=== PATIENT | female | born 1945 | race Caucasian/White ===

== ENCOUNTER 2020-01-22 09:43 | Outpatient (CLI) | payer MEDICARE, SELFPAY ==
--- NOTE | ~2020-01-22 | MM_ITS ---
EXAMINATION: MM scrn lisbet implant BI w odette HISTORY: Screening mammogram TECHNIQUE: Craniocaudal and mediolateral oblique 3-D tomosynthesis images with implant displacement a nd synthetic 2-D images were generated. Craniocaudal and mediolateral oblique views of the breasts wi thout implant displacement were obtained using full field digital mammography. CAD analysis was submi tted and interpreted. COMPARISON: Comparison to multiple prior studies sequentially, with oldest reviewed study dated 09/05. BREAST PARENCHYMAL COMPOSITION: There are scattered areas of fibroglandular density. FINDINGS: There are bilateral subglandular silicone implants. There is no evidence of suspicious mass , calcification, or architectural distortion to suggest malignancy in either breast. There has been n o suspicious interval change. IMPRESSION: 1. No mammographic evidence of malignancy. 2. Recommend routine screening mammography in one year. BI-RADS Category 1: Negative Reviewed, dictated and finalized at location A.
== END 2020-01-22 09:44 | disposition home or self-care (01) ==
LOC: ANHIMG 09:52
PROVIDERS: PCP Family Medicine; Visit Provider Obstetrics & Gynecology Gynecology
DX: Z12.31 Encounter for screening mammogram for malignant neoplasm of breast (principal)
CPT/HCPCS: 77063; 77067

== ENCOUNTER 2021-10-04 09:50 | Outpatient (CLI) | payer MEDICARE, SELFPAY ==
--- NOTE | ~2021-10-04 | MM_ITS ---
EXAMINATION: MM scrn lisbet implant BI w odette HISTORY: Screening mammogram TECHNIQUE: Craniocaudal and mediolateral oblique 3-D tomosynthesis images with implant displacement a nd synthetic 2-D images were generated. Craniocaudal and mediolateral oblique views of the breasts wi thout implant displacement were obtained using full field digital mammography. CAD analysis was submi tted and interpreted. COMPARISON: 02/18/2020, 01/14/2019, 09/11/2017 BREAST PARENCHYMAL COMPOSITION: There are scattered areas of fibroglandular density. FINDINGS: There is no evidence of suspicious mass, calcification, or architectural distortion to sugg est malignancy in either breast. There has been no suspicious interval change. IMPRESSION: 1. No mammographic evidence of malignancy. 2. Recommend routine screening mammography in one year. BI-RADS Category 1: Negative Reviewed, dictated and finalized at location A.
--- NOTE | ~2021-10-04 | DEXA_ITS ---
Bone Density Report Name: MARU DE LA ROSA Age: 76 Sex: Female Ethnicity: White Date of : 1945 Indication: monitoring treatment; height loss; prior fracture; asthma or emphysema; postmenopausal Referring Provider: DARIEN YANES Study: Bone densitometry was performed. Exam Date: October 04, 2021 Accession number: [id number] Bone Density: Region BMD T-score Z-score Classification AP Spine(L1-L4) 1.129 0.7 3.3 Normal World Health Organization criteria for BMD impression classify patients as: Normal (T-score at or above -1.0), Osteopenia (T-score between -1.0 and -2.5), or Osteoporosis (T-score at or below -2.5). Previous Exams: Region Exam Age BMD T-score BMD Change BMD Change Date g/cm2 vs Baseline vs Previous AP Spine (L1-L4) 10/04/2021 76 1.129 0.7 0.021 (1.9%)# 0.021 (1.9%)# 10/09/2012 67 1.109 0.6 *Denotes significance at 95% confidence level, LSC for AP Spine = 0.022 g/cm2 # Denotes dissimilar scan types or analysis methods Clinical Information Provided by Patient: Have had a previous hip or vertebral fracture Has had a low trauma fracture Is being treated for osteoporosis Has used the following medications: Evista (i.e. raloxifene), Vitamin D, Calcium Has the following medical conditions: Asthma or Emphysema Patient maximum height was 62.5 Menopause Age: 51 Drinks caffeinated beverages Onset of menses at age 11 Number of children 0 Impression: The patient has normal bone mass. The patient has risk factors, including: previous fracture. No significant bone loss was observed. Discussion: PATIENT UNDER TREATMENT WITH NO SIGNIFICANT BMD LOSS SINCE LAST EXAM. In an untreated patient, BMD typically declines with age. A lack of decline or gain is usually a sign that treatment is efficacious and fracture risk is reduced. It is important to ask patients whether they are taking their medications and to encourage continued and appropriate compliance with their osteoporosis therapies to reduce fracture risk. It is also important to review their risk factors and encourage appropriate calcium and vitamin D intakes, exercise, fall prevention and other lifestyle measures. Follow-Up: Consider a repeat BMD and Vertebral Fracture Assessment (VFA) exam in 2 years or sooner if medically necessary, to reassess this patient's status. Reported by: [facility] on 10/04/2021 10:33:00 AM. Reviewed, dictated and finalized at location AHilaria ANGUIANO
== END 2021-10-04 09:51 | disposition home or self-care (01) ==
PROVIDERS: PCP Family Medicine; Visit Provider Obstetrics & Gynecology Gynecology
DX: Z12.31 Encounter for screening mammogram for malignant neoplasm of breast (principal); Z78.0 Asymptomatic menopausal state
CPT/HCPCS: 77063; 77067; 77080

== ENCOUNTER 2022-11-30 08:15 | Outpatient (CLI) | payer MEDICARE, SELFPAY ==
--- NOTE | ~2022-11-30 | MM_ITS ---
EXAMINATION: MM scrn lisbet implant BI w odette HISTORY: Screening mammogram TECHNIQUE: Craniocaudal and mediolateral oblique 3-D tomosynthesis images with implant displacement a nd synthetic 2-D images were generated on the right performed on the left.. Craniocaudal and mediolat eral oblique views of the breasts without implant displacement were obtained using full field digital mammography. CAD analysis was submitted and interpreted. COMPARISON: 10/04/2021, 01/22/2020, 01/14/2019 bilateral implant screening mammogram examinations BREAST PARENCHYMAL COMPOSITION: There are scattered areas of fibroglandular density. FINDINGS: Status post bilateral augmentation mammoplasty. There is no evidence of suspicious mass, ca lcification, or architectural distortion to suggest malignancy in either breast. There has been no domínguez spicious interval change. IMPRESSION: 1. No mammographic evidence of malignancy. 2. Recommend routine screening mammography in one year. BI-RADS Category 1: Negative Reviewed, dictated and finalized at location A.
== END 2022-11-30 08:16 | disposition home or self-care (01) ==
PROVIDERS: PCP Family Medicine; Visit Provider Obstetrics & Gynecology Gynecology
DX: Z12.31 Encounter for screening mammogram for malignant neoplasm of breast (principal)
CPT/HCPCS: 77063; 77067

== ENCOUNTER 2024-01-17 09:35 | Outpatient (CLI) | payer MEDICARE, SELFPAY ==
--- NOTE | ~2024-01-17 | MM_ITS ---
EXAMINATION: MM scrn lisbet implant BI w odette HISTORY: Screening mammogram TECHNIQUE: Craniocaudal and mediolateral oblique 3-D tomosynthesis images with implant displacement a nd synthetic 2-D images were generated. Craniocaudal and mediolateral oblique views of the breasts wi thout implant displacement were obtained using full field digital mammography. CAD analysis was submi tted and interpreted. COMPARISON: Comparison to multiple prior studies sequentially, with oldest reviewed study dated 09/05. BREAST PARENCHYMAL COMPOSITION: There are scattered areas of fibroglandular density. FINDINGS: There is no evidence of suspicious mass, calcification, or architectural distortion to sugg est malignancy in either breast. There has been no suspicious interval change. IMPRESSION: 1. No mammographic evidence of malignancy. 2. Recommend routine screening mammography in one year. BI-RADS Category 1: Negative Reviewed, dictated and finalized at location B.
== END 2024-01-17 09:36 | disposition home or self-care (01) ==
PROVIDERS: Visit Provider Obstetrics & Gynecology Gynecology
DX: Z12.31 Encounter for screening mammogram for malignant neoplasm of breast (principal)
CPT/HCPCS: 77063; 77067

== ENCOUNTER 2025-02-03 09:33 | Outpatient (CLI) | payer MEDICARE, SELFPAY ==
--- NOTE | ~2025-02-03 | MM_ITS ---
EXAMINATION: MM scrn lisbet implant BI w odette INDICATION: Asymptomatic, referred for screening mammogram COMPARISON: 01/17/2024 through 10/04/2021 TECHNIQUE: Digital Breast Tomosynthesis CC, MLO, and implant displaced CC and MLO views of Both breasts were obtained with computer-aided detection to assist in interpretation of the study. FINDINGS: There are scattered areas of fibroglandular density. Bilateral breast Retroglandular Silicone implants in place appears unchanged. No focal dominant mass, architectural distortion, or suspicious microcalcifications are identified. There are no features to suggest malignancy. IMPRESSION: 1. No evidence of malignancy in the breasts. 2. Both breasts Retroglandular Silicone implants appears unchanged. Recommend continued screening mammography BI-RADS 1, NEGATIVE Reviewed, dictated and finalized at location C.
--- OUTSIDE RECORDS SUMMARY | 2025-02-03 10:53 | XMS_ITS | Patient Health Record ---
Author Organization [facility] Address [address] [place], [place] [id number] Care Team Providers Care Sand Bobber Name Role Phone DIONISIO RUIZ Unavailable [phone] Jose Greenberg Unavailable Unavailable Reason For Referral No Information Medications Medication SIG (Take, Route, Frequency, Duration) Notes Start Date End Date Status cephalexin 500 MG Oral Capsule [Keflex] ORAL cephalexin 500 MG Oral Capsule [Keflex]Original Medicationcephalexin 500 MG Oral Capsule [Keflex] *Reorder from [employer] for eRx and Interaction Alerts* 03/05/2012 Active Nabumetone 500 MG Oral Tablet ORAL nabumetone 500 MG Oral TabletOriginal Medicationnabumetone 500 MG Oral Tablet *Reorder from [employer] for eRx and Interaction Alerts* 04/01/2013 Active Plan Of Treatment No Information Insurance Providers Payer Name Payer Address Payer Phone Subscriber Number Group Number Insured Name Patient Relationship to Insured Coverage Start Date Coverage End Date Medicare Part B [place] [address] [place] [address] [id number] MARU DE LA ROSA Self - patient is the insured [facility] Insurance [address] [address] [place] [address] [id number] MARU DE LA ROSA Self - patient is the insured [facility] B [address] [place], [place] [id number] MARU DE LA ROSA Self - patient is the insured
--- OUTSIDE RECORDS SUMMARY | 2025-02-03 10:53 | XMS_ITS | Encounter Summary ---
Author Organization [facility] Facility Care Team Providers Care Metrology Engineer Name Role Phone Jose Greenberg MD Primary Care Provider [phone] Miles Meza MD Unavailable [phone] Claudia Fragoso LPN Unavailable [phone] Tamiko Sadler MD, Michael G. Primary Care Provide r No, Physician Primary Care Provider [phone] Tamiko Sadler MD, Ankur Norton Primary Care Provide r Encounter Details Date Type Department Care Team (Latest Contact Info) Description 12/31/2017 Orders Only [facility] CLINCONV ProviderAnaya MD [address] [place] [address] Social History Tobacco Use Types Packs/Day Years Used Date Smoking Tobacco: Never Assessed Comments Unknown Sex and Gender Information Value Date Recorded Sex Assigned at Not on file Legal Sex Female 12:27 AM TESTS SUPERINTENDENT Gender Identity Not on file Sexual Orientation Not on file documented as of this encounter Plan of Treatment Not on file documented as of this encounter Procedures Procedure Name Priority Date/Time Associated Diagnosis Comments COLONOSCOPY - SCAN 12/31/2017 12 :00 AM CDT documented in this encounter Results * COLONOSCOPY - SCAN (12/31/2017 12:00 AM CDT) Narrative 12/31/2017 12:00 AM CDT Ordered by an unspecified provider. Historical Provider Final Res ult documented in this encounter Visit Diagnoses Not on filedocumented in this encounter Care Teams Metrology Engineer Relationship Specialty Start Date End Date Jose Greenberg MD PCP - General Family Medicine 10/22/18 05/01/22 Ankur Morrison Jr., MD [address] [place] [address] PCP - General Internal Medicine 05/02/22 05/02/22 No, Physician PCP - General 05/19/22 06/04/22 Ankur Morrison Jr., MD [address] [place] [address] PCP - General Internal Medicine 06/05/22 Miles Meza MD [address] [facility] [address] [address] Consulting Physician Orthopedic Surgery 01/11/2104/07 Claudia Fragoso, SOCIAL ORGANIZATION PROFESSOR [address] [facility] [address] [address] Lockstitch Topstitcher 01/12/21 01/12/21 documented as of this encounter
--- OUTSIDE RECORDS SUMMARY | 2025-02-03 10:53 | XMS_ITS | Clinical Summary ---
Author Organization [facility] Address [address] [place] [address] Care Team Providers Care Laborer Adjustable Steel Joist Name Role Phone Unavailable Primary Care Provider Unavailabl e Source Comments [facility],non-owned Affiliates and Associated Physician Practices is amultiple site organization consisting of ambulatory clinics and hospital sitesin [place], [place], [place] and [place]. This disclosure is being madepursuant to the Care Everywhere program and may not contain all information available regarding this patient. Last updated 18.[facility] Allergies No known active allergies Medications * Be aware that medications may not be up to date on this document. Alwaysverify current medications with the patient. raloxifene (EVISTA) 60 MG tablet Take 60 mg by mouth once daily Active Calcium Citrate-Vitamin D (CALCIUM + D PO) Active [place]-3 Fatty Acids (FISH OIL) 500 MG capsule Take by mouth 2 times daily Active Cholecalciferol (VITAMIN D PO) Activ e Multiple Vitamins-Minera ls (MULTIVITAMIN ADULT PO) Active methylPREDNISol one (MEDROL) 4 MG tabletIndicatio ns:Right hip pain Take 1 tablet by mouth as directed 21 Each 09/27/2017 Active Social History Tobacco Use Types Packs/Day Years Used Date Smoking Tobacco: Former Cigarettes Q uit: 09/27/1984 Smokeless Tobacco: Never Alcohol Use Standard Drinks/Week Comments Yes 0 (1 standard drink = 0.6 oz pur e alcohol) occasional, social Comments No Sex and Gender Information Value Date Recorded Sex Assigned at Not on file Legal Sex Female 6:49 AM ANALYSIS CONSULTANT Gender Identity Not on file Sexual Orientation Not on file Last Filed Vital Signs Vital Sign Reading Time Taken Comments Blood Pressure 130/83 10/03/2017 9:23 AM CDT Pulse 79 10/03/2017 9:23 AM CDT Temperature 36.3 C (97.4 F) 10/03/2017 9:23 AM CDT Respiratory Rate - - Oxygen Saturation - - Inhaled Oxygen Concentration - - Weight 56.7 kg (125 lb) 10/03/2017 9:23 AM CDT Height 157.5 cm (5' 2) 10/03/2017 9:23 AM CDT Body Mass Index 22.86 10/03/2017 9:23 AM CDT Plan of Treatment Health Maintenance Due Date Last Done Comments BONE DENSITY TESTING 1945 DTAP/TDAP/TD VACCINES (1 - Tdap) 1962 PNEUMOCOCCAL VACCINE 50+ (1 of 1 - PCV) 1993 ZOSTER VACCINE (1 of 2) 1993 Respiratory Syncytial Virus (RSV) Vaccine Pt: or over 60 yrs (1 - 1-dose 75+ series) 2018 DEPRESSION SCREENING 05/21/2024 COVID-19 VACCINE (1 - 2023-2 5 season) 2025 INFLUENZA VACCINE (#1) 2025 HEPATITIS B VACCINE Aged Out No longe r eligible based on patient's age to complete this topic HIB VACCINE Aged Out No longer eligi ble based on patient's age to complete this topic HPV VACCINE Aged Out No longer eligi ble based on patient's age to complete this topic MENINGOCOCCAL (Group B) VACC INE SHARED DECISION-MAKING Aged Out No longer eligibl e based on patient's age to complete this topic MENINGOCOCCAL GROUPS A/C/Y/W VACCINE Aged Out No longer eligible b ased on patient's age to complete this topic Insurance [facility] [id number] MEDICARE AET MEDICARE
--- OUTSIDE RECORDS SUMMARY | 2025-02-03 10:53 | XMS_ITS | Encounter Summary ---
Author Organization [facility] Healthcare Address [address] [place] [address] Care Team Providers Care Bundler Seasonal Greenery Name Role Phone Tamiko Sadler MD, Ankur Norton Primary Care Provide r Reason for Visit * Reason Onset Date Comments Test Results 01/22/2025 Encounter Details Date Type Department Care Team ([facility] st Contact Info) Description 01/22/2025 Telephone [facility] Medical [facility] Primary Care [address] [place] [phone] Ankur Morrison Jr., MD [address] [place] [id number] Test Results Social History Tobacco Use Types Packs/Day Years Used Date Smoking Tobacco: Former Cigarettes 0.8 28 1 960 - 1988 Smokeless Tobacco: Never Alcohol Use Standard Drinks/Week Comments Yes 4 (1 standard drink = 0.6 oz pur e alcohol) Occasional PHQ-2 Answer Date Recorded PHQ-2 Total Score (If total score is 3 or more points, staff should administer the PHQ-9) 0 01/15/2025 PHQ-9 Answer Date Recorded PHQ-9 Total Score 1 12/18/2024 AUDIT-C Answer Date Recorded Q1: How often do you have a drink containing alcohol? 4 or more times a week 01/15/2025 Q2: How many drinks containi ng alcohol do you have on a typical day when you are drinking? 1 or 2 Q3: How often do you have si x or more drinks on one occasion? Never 01/15/2025 Comments No Sex and Gender Information Value Date Recorded Sex Assigned at Not on file Legal Sex Female 12:27 AM LEAD PHARMACY TECHNICIAN Gender Identity Not on file Sexual Orientation Not on file Occupation Industry Job Start Date Job End Date RETIRED Not on file Not on file Not on file documented as of this encounter Miscellaneous Notes * Telephone Encounter - Jigna Salguero MA - 01/22/2025 1:14 PM CDT Notified * Telephone Encounter - Yari Cho - 01/22/2025 9:27 AM CDT Test Result Request Type of test: Labs Date of test: 01/20/2025 Where was the test performed at?[facility] Did provider dictate result yet? No Additional Questions/Comments: Patient would like to know if she should start taking a multi vitamin again, please advise Does message need to be routed? Yes-Action Needed documented in this encounter Plan of Treatment Not on file documented as of this encounter Visit Diagnoses Not on filedocumented in this encounter Care Teams Bundler Seasonal Greenery Relationship Specialty Start Date End Date Ankur Morrison Jr., MD [address] [place] [address] PCP - General Internal Medicine 06/05/22 documented as of this encounter
--- OUTSIDE RECORDS SUMMARY | 2025-02-03 10:53 | XMS_ITS | Encounter Summary ---
Author Organization [facility] Facility Care Team Providers Care Smoked Meat Preparer Name Role Phone Jose Greenberg MD Primary Care Provider [phone] Miles Meza MD Unavailable [phone] Claudia Fragoso LPN Unavailable [phone] Tamiko Sadler MD, Michael G. Primary Care Provide r No, Physician Primary Care Provider Tamiko Sadler MD, Ankur Norton Primary Care Provide r Encounter Details Date Type Department Care Team (Latest Contact Info) Description 12/20/2017 Orders Only [facility] CLINCONV ProviderAnaya MD [address] [place] [address] Social History Tobacco Use Types Packs/Day Years Used Date Smoking Tobacco: Never Assessed Comments Unknown Sex and Gender Information Value Date Recorded Sex Assigned at Not on file Legal Sex Female 12:27 AM SEASONAL CUSTOMER SERVICE ASSOCIATE Gender Identity Not on file Sexual Orientation Not on file documented as of this encounter Plan of Treatment Not on file documented as of this encounter Procedures Procedure Name Priority Date/Time Associated Diagnosis Comments COLONOSCOPY - SCAN 12/20/2017 12 :00 AM CDT documented in this encounter Results * COLONOSCOPY - SCAN (12/20/2017 12:00 AM CDT) Narrative 12/20/2017 12:00 AM CDT Ordered by an unspecified provider. Historical Provider Final Res ult documented in this encounter Visit Diagnoses Not on filedocumented in this encounter Care Teams Smoked Meat Preparer Relationship Specialty Start Date End Date Jose Greenberg MD PCP - General Family Medicine 10/22/18 05/01/22 Ankur Morrison Jr., MD [address] [place] [address] PCP - General Internal Medicine 05/02/22 05/02/22 No, Physician PCP - General 05/19/22 06/04/22 Ankur Morrison Jr., MD [address] [place] [address] PCP - General Internal Medicine 06/05/22 Miles Meza MD [address] [facility] [address] [address] Consulting Physician Orthopedic Surgery 01/11/2104/07 Claudia Fragoso, STATION MECHANIC APPRENTICE [address] [facility] [address] [address] Christian Ministries Professor 01/12/21 01/12/21 documented as of this encounter
--- OUTSIDE RECORDS SUMMARY | 2025-02-03 10:54 | XMS_ITS | Clinical Summary ---
Author Organization [facility] Address [address], [facility] [address] [place] [address] Phone Care Team Providers Care Fruit Harvester Name Role Phone Lashell Gavin MD Unavailable [phone] Provider, Unknown Primary Care Provider Unavaila ble Allergies No known active allergies Medications polyethylene glycol (MIRALAX) Powder Please use entire 255 gram for colonoscopy prep as directed by office. 1 Bottle 8 Active Multiple Vitamins-Minera ls (MULTIVITAMIN PO) Take by mouth. Activ e Calcium Carb-Cholecalci ferol (CALCIUM 600 + D PO) Take by mouth. Act fam aspirin EC 81 MG Tablet Delayed Response Take 81 mg by mouth daily. Active [place]-3 Fatty Acids ([place]-3 FISH OIL PO) Take 1,400 mg by mouth. Active Family History Medical History Relation Name Comments Emphysema Father Relation Name Status Comments Father Mother Alive Sister 1 Alive Sister 2 Alive Sister 3 Alive Social History Tobacco Use Types Packs/Day Years Used Date Smoking Tobacco: Former Smokeless Tobacco: Never Alcohol Use Standard Drinks/Week Comments Yes 0 (1 standard drink = 0.6 oz pur e alcohol) Comments Unknown Sex and Gender Information Value Date Recorded Sex Assigned at Not on file Legal Sex Female 11:39 PM CDT Gender Identity Not on file Sexual Orientation Not on file Plan of Treatment Health Maintenance Due Date Last Done Comments Hepatitis C Virus (HCV) Screening 1945 TdaP Immunization 1945 Pneumococcal Immunization (5 0+ years) (1 of 1 - PCV) 1993 Zoster Immunization (1 of 2) 1993 Respiratory Syncytial Virus (RSV) Immunization (Adult) (1 - 1-dose 75+ series) 2018 SARS-COV-2 Immunization (2023- season) 2024 Influenza Immunization (#1) 2025 Hepatitis B Immunization Aged Out No longer eligible based on patient's age to complete this topic Human Papillomavirus (HPV) Immunization Aged Out No longer eligible b ased on patient's age to complete this topic Meningococcal Immunization (ACWY) Aged Out No longer eligible based on patient's age to complete this topic Rotavirus Immunization Aged Out No lo nger eligible based on patient's age to complete this topic Insurance MEDICARE [employer] SENIOR SUPPLEMENTAL Care Teams Fruit Harvester Relationship Specialty Start Date End Date Provider, Unknown UNKNOWN PCP - General 12/27/17 Lashell Gavin MD [address] [address] Obstetrics & Gynecology 11/07/17
--- OUTSIDE RECORDS SUMMARY | 2025-02-03 10:54 | XMS_ITS | Clinical Summary ---
Author Organization [address] Address [address] [place] [id number] Care Team Providers Care Powerplant Operator Name Role Phone Tamiko Sadler MD, Ankur Norton Primary Care Provide r Allergies Active Allergy Reactions Criticality Noted Date Comments Other Hives Medium 12/13/2023 Tyler Ta mushroom capsule Medications multivitamin with minerals tablet Take 1 tablet by mouth daily Active Restasis 0.05 % ophthalmic emulsion Administer 1 drop into both eyes 2 (two) times a day 02/09/20 22 Active albuterol HFA (Ventolin HFA) 90 mcg/actuation inhalerIndicatio ns:Chronic obstructive pulmonary disease, unspecified COPD type (HCC) Inhale 2 puffs every 4 (four) hours as needed for wheezing or shortness of breath 18 g 5 06/06/19 23 Active Additional Information Patient not taking.Reported on 01/15/2025 triamcinolone (KENALOG) 0.1 % cream Apply topically 2 (two) times a day 12/05/19 24 Active colestipoL (COLESTID) 1 gram tabletIndication s:Irritable bowel syndrome with diarrhea Take 1 tablet (1 g total) by mouth 2 (two) times a day 180 tablet 3 11/20/19 25 Active ascorbic acid/collagen hydr (COLLAGEN SKIN RENEWAL ORAL) Take by mouth Active calcium carbonate (OS-LAYTON) 1,250 mg (500 mg elemental) tablet Take 1 tablet (1,250 mg total) by mouth daily Active alendronate (FOSAMAX) 10 mg tabletIndication s:Age-related osteoporosis without current pathological fracture Take 1 tablet (10 mg total) by mouth daily before breakfast Take in the morning with a full glass of water, on an empty stomach, and do not take anything else by mouth or lie down for the next 30 min. 90 tablet 3 01/16/20 25 026 Active hydrocortisone 2.5 % cream Apply topically 2 (two) times a day as needed for irritation or rash 90 g 4 01/23/20 25 Active omega-3 fatty acids-fish oil 360-1,200 mg capsule Take 1,200 mg by mouth daily 025 Discontin ued(Thera py completed ) acidophilus-pect in, citrus 100 million cell-10 mg capsule Take by mouth 025 Discontin ued(Thera py completed ) calcium carbonate-vitami n D3 1,250 mg (500 mg elemental)-600 unit tablet Take by mouth 025 Discontin ued(Thera py completed ) Active Problems Problem Noted Date Diagnosed Date Forgetfulness 12/18/2024 Assessment & Plan (12/18/2024 12:24 PM CDT): Concerned with this, did well on test befre but will refer to sunbird trial Encounter for Medicare annual wellness exam 11/19 Assessment & Plan (12/18/2024 12:24 PM CDT): Reviewed previous labs and diagnostic test results. Chronic medical problems evaluated and management plans discussed with the patient. Prescription medications, supplements, vitamins and immunizations reviewed. Wear seatbelts. Use sunscreen. Discussed healthy diet and disease prevention and controlling portions including alcohol Discussed importance of scheduling recommended screening tests. Discussed importance of regular physical examinations for health maintenance. Discussed importance of a living will, advanced directives and establishing or updating healthcare power of deputy attorney general document and providing our office with a copy. Assessment & Plan (12/13/2023 9:54 AM CDT): Reviewed previous labs and diagnostic test results. Chronic medical problems evaluated and management plans discussed with the patient. Prescription medications, supplements, vitamins and immunizations reviewed. Wear seatbelts. Use sunscreen. Discussed healthy diet and disease prevention and controlling portions including alcohol Discussed importance of scheduling recommended screening tests. Discussed importance of regular physical examinations for health maintenance. Discussed importance of a living will, advanced directives and establishing or updating healthcare power of deputy attorney general document and providing our office with a copy. Assessment & Plan (12/11/2022 8:24 AM CDT): Reviewed previous labs and diagnostic test results. Chronic medical problems evaluated and management plans discussed with the patient. Prescription medications, supplements, vitamins and immunizations reviewed. Wear seatbelts. Use sunscreen. Discussed healthy diet and disease prevention and controlling portions including alcohol Discussed importance of scheduling recommended screening tests. Discussed importance of regular physical examinations for health maintenance. Discussed importance of a living will, advanced directives and establishing or updating healthcare power of deputy attorney general document and providing our office with a copy. Panlobular emphysema 06/05/2022 Assessment & Plan (12/18/2024 9:47 AM CDT): Stable uses inhaler only prn Rarely uses it Assessment & Plan (12/13/2023 9:55 AM CDT): Stable uses inhaler only prn Rarely uses it Assessment & Plan (06/05/2022 9:00 AM AGRISCIENCE TECHNOLOGY INSTRUCTOR): Sees pulbrandee for this, will see tomorrow Continue medications as prescribed Cigarette nicotine dependence in remission 07/29 Primary osteoarthritis of left hip 04/22/2021 Assessment & Plan (12/11/2022 8:39 AM CDT): Monitor Status post total replacement of right hip 01/10 Primary osteoarthritis of right hip 10/27/2020 Overview (10/27/2020): Added automatically from request for surgery [id number] Assessment & Plan (12/11/2022 8:39 AM CDT): Monitor Pancreatic cyst 07/25/2019 Overview (07/25/2019): Added automatically from request for surgery [id number] Assessment & Plan (06/05/2022 9:00 AM AGRISCIENCE TECHNOLOGY INSTRUCTOR): Dx via GI Osteopenia of lumbar spine 05/06/2019 Sacral pain 06/19/2017 Lumbar spine pain 10/07/2015 Resolved Problems Problem Noted Date Diagnosed Date Resolved Date Esophagitis 01/27/2022 12/13/2023 Overview (01/27/2022): Added automatically from request for surgery [id number] Assessment & Plan (06/05/2022 8:54 AM AGRISCIENCE TECHNOLOGY INSTRUCTOR): Continue current medications Aortic valve disorder 12/13/20212023 Dysphagia 09/27/2021 06/05/2022 Overview (09/27/2021): Added automatically from request for surgery [id number] Dyspnea and respiratory abnormalities 07/29/2021 06/05/2022 Overview (07/29/2021): condition chroinc adn getting worse. refer to real Abnormal EKG 07/29/2021 06/05/2022 Chronic obstructive pulmonary disease 12/13/2023 Assessment & Plan (12/11/2022 8:40 AM CDT): Chronic stable Well controlled Continue current prescribed medications at current dose Encounters Date Type Department Care Team Description 01/22/2025 Telephone [facility] Primary Care [address] [place] [phone] Ankur Morrison Jr., MD 01/22/2025 Telephone [facility] Primary Care [address] [place] [phone] Ankur Morrison Jr., MD Test Results 01/20/2025 8:30 AM CDT Lab [facility] Lab [address] [place] [address] Hypervitaminosis D 01/15/2025 11:30 AM CDT Office Visit [facility] Pulmonology [address] [phone] Mckenzie Hernandez MD Chronic obstructive pulmonary disease, unspecified COPD type (HCC) (Primary Dx); Mild intermittent asthma without complication; Non-seasonal allergic rhinitis due to other allergic trigger 01/15/2025 9:00 AM CDT Office Visit [facility] Primary Care [address] [place] [phone] Ankur Morrison Jr., MD Age-related osteoporosis without current pathological fracture (Primary Dx); Hypervitaminosis D 01/14/2025 8:45 AM CDT Lab [facility] Lab [facility] [place] [address] Hypervitaminosis D; Osteopenia of lumbar spine 01/05/2025 9:40 AM CDT - 01/05/2025 11:59 PM CDT Hospital Encounter [facility] [address] [place] [address] Chronic obstructive pulmonary disease, unspecified COPD type (HCC) Discharge Disposition: Discharge to home or self care 01/01/2025 Results Follow-Up [facility] [address] [place] [phone] Jigna Salguero MA Dexa Axial Skeleton Bone Density 1 or 2 Site 01/01/2025 Orders Only [facility] Primary Care [address] [place] [phone] Ankur Morrison Jr., MD Hypervitaminosis D (Primary Dx); Osteopenia of lumbar spine 12/31/2024 9:20 AM CDT - 12/31/2024 11:59 PM CDT Hospital Encounter [facility] Office Bld[facility] [address] [address] Hypervitaminosis D; Osteopenia of lumbar spine Discharge Disposition: Discharge to home or self care 12/18/2024 10:15 AM CDT Lab [facility] [address] [place] [address] Poisoning by vitamin D, accidental or unintentional, initial encounter; Hypervitaminosis D; Pure hypercholesterolemia; Encounter for Medicare annual wellness exam 12/18/2024 9:30 AM CDT Office Visit [facility] Primary Care [address] [place] [address] [place] [phone] Ankur Morrison Jr., MD Encounter for Medicare annual wellness exam (Primary Dx); Pure hypercholesterolemia; Hypervitaminosis D; Panlobular emphysema (HCC); Osteopenia of lumbar spine; Forgetfulness 12/18/2024 Telephone [facility] Care [address] [place] [phone] Ankur Morrison Jr., MD Medical Question/Miscellaneous from Last 3 Months Immunizations Immunization Administration Dates Next Due Influenza, Quad, Adjuvantate d, Intramuscular 02/12/2023,03/02/2021 Influenza, Quadrivalent, Hig h Dose, Preservative Free, Intrr 02/26/2022,03/02/2020 Influenza, Trivalent, Adjuva nted, Intramuscular 02/11/2024 Influenza, Trivalent, High D ose, Split, Preservative Free, Intramuscular 03/05/2019,04/18/2016,03/01/2015 Influenza, Unspecified 01/15/2025(Deferr ed: Patient Refused),03/03/2021 Pneumococcal Conjugate PCV 13 04/18/2016 Pneumococcal Polysaccharide PPV23 08/30/2021 RSV Vaccine, Pref, Recombina nt, Subunit, Adjuvanted, PF, IM (Arexvy) 01/18/2023 Tdap 03/21/2023 ZOSTER Recombinant 03/21/2023,01/18/2023 Surgical History Surgery Date Site/Laterality Comments BACK SURGERY 05/21/2007 - 05/20/2008 cyst removal BREAST IMPLANT REMOVAL COLONOSCOPY DILATION AND CURETTAGE, DIAGNOSTIC / THERAPEUTIC CATARACT EXTRACTION, BILATERAL JOINT REPLACEMENT 09/23/2020 Left total hip JOINT REPLACEMENT 01/10/2021 Right total hip Medical History Medical History Date Comments Chronic diarrhea Colon polyp Peptic ulcer pt states years ago, but unsure of when Hyperthyroidism history back in the 80's, no longer requires treatment Fibroid Cataract Osteoarthritis Delayed emergence from general anesthesia during breast implant surgery Irritable bowel syndrome taking dicyclomine Diarrhea 2019 required iv hydr ation, resolved GERD (gastroesophageal reflux disease) prn, diet related Urinary frequency frequenct at n ight Miscarriage SOB (shortness of breath) Family History Medical History Relation Name Comments No Known Problems Father Thyroid disease Mother Thyroid disease Sister 1 Thyroid disease Sister 2 Heart disease Neg Hx Relation Name Status Comments Father Mother Sister 1 Alive Sister 2 Alive Sister 3 Alive Social History Tobacco Use Types Packs/Day Years Used Date Smoking Tobacco: Former Cigarettes 0.8 28 1 960 - 1987 Smokeless Tobacco: Never Tobacco Cessation:Counseling Given: Not Answered Alcohol Use Standard Drinks/Week Comments Yes 4 [...] on file Legal Sex Female 12:27 AM AGRISCIENCE TECHNOLOGY INSTRUCTOR Gender Identity Not on file Sexual Orientation Not on file Occupation Industry Job Start Date Job End Date RETIRED Not on file Not on file Not on file Obstetrics History Last Filed Vital Signs Vital Sign Reading Time Taken Comments Blood Pressure 139/85 01/15/2025 11:42 AM CDT Pulse 71 01/15/2025 11:42 AM CDT Temperature 36.4 C (97.5 F) 01/15/2025 11:42 AM CDT Respiratory Rate 18 01/15/2025 11:42 AM CDT Oxygen Saturation 96% 01/15/2025 11:42 AM CDT Inhaled Oxygen Concentration - - Weight 54.6 kg (120 lb 6.4 oz) 01/15/2025 11:42 AM CDT Height 157.5 cm (5' 2) 01/15/2025 11:42 AM CDT Body Mass Index 22.02 01/15/2025 11:42 AM CDT Plan of Treatment Health Maintenance Due Date Last Done Comments Hepatitis B Screening 1963 Influenza Vaccine (#1) 2025 , 02/12/2023, 02/26/2022, Additional history exists Fall Risk Assessment 12/18/2025 12/18/2024, 12/13/2023, 12/11/2022, Additional history exists Well Visit 65+ 12/18/2025 12/18/2024, 11/19, 12/11/2022, Additional history exists Depression Screening 01/15/2026 01/15/2025, 12/18/2024, 12/18/2024, Additional history exists Osteoporosis Screening-Bone Density Scan 12/31/2026 12/31/2024, 10/04/2021 Pneumococcal vaccine 65+ Completed 08/30/2021, 03/22 DTaP/Tdap/Td Vaccine Discontinued 03/21/2023 Zoster Vaccine Completed 03/21/2023, 01/18/2023 Covid-19 Vaccine Completed 09/15/2024, , 08/13/2023, Additional history exists Medical Devices Implanted Type Area Manufacturing Operator Device Identifier Shelf Expiration Date Model / Serial / Lot Joint Left: Hip [employer]/ Ortho [id number] Reflection R3 Thread Acetabulum Cover Hole - [id number] Implanted:Qty: 1 on 01/10/2021 by Miles Meza MD at [facility] Right: Hip [employer]/Or tho [id number] / / [id number] [employer]/ Ortho [id number] R3 48mm 3 Hole Hip Standard Shell Acetabular Sterile - [id number] Implanted:Qty: 1 on 01/10/2021 by Miles Meza MD at [facility] Right: Hip [employer]/Or tho [id number] 08/06/2030 [id number] / / [id number] [employer]/ Ortho [id number] R3 48mm 32mm Hip 20d Liner Acetabular Xlpe Sterile - [id number] Implanted:Qty: 1 on 01/10/2021 by Miles Meza MD at [facility] Right: Hip [employer]/Or tho [id number] 04/19/2030 [id number] / / [id number] [employer]/ Ortho [id number] Reflection 6.5mm 25mm Hip Acetabular Cancellous [place] Full - [id number] Implanted:Qty: 1 on 01/10/2021 by Miles Meza MD at [facility] Right: Hip [employer]/Or tho [id number] 11/27/2028 [id number] / / [id number] [employer]/ Ortho [id number] Synergy 13mm 155mm Standard Offset Hip Stem Femoral Titanium - [id number] Implanted:Qty: 1 on 01/10/2021 by Miles Meza MD at [facility] Right: Hip [employer]/Or tho [id number] 08/04/2030 [id number] / / [id number] [employer]/ Ortho [id number] Synergy 32mm Hip +4 12/14 [place] Femoral Oxinium - [id number] Implanted:Qty: 1 on 01/10/2021 by Miles Meza MD at [facility] Right: Hip [employer]/Or tho [id number] 08/21/2030 [id number] / / [id number] Procedures Procedure Name Priority Date/Time Associated Diagnosis Comments VITAMIN D 25 HYDROXY Routine 01/20/2025 8:43 AM CDT Hypervitaminosis D EGFR Routine 01/14/2025 9:04 AM CDT Hypervitaminosis D Osteopenia of lumbar spine VITAMIN D 25 HYDROXY Routine 01/14/2025 9:04 AM CDT Hypervitaminosis D Osteopenia of lumbar spine COMPREHENSIVE METABOLIC PANEL Routine 01/14/2025 9:04 AM CDT Hypervitaminosis D Osteopenia of lumbar spine PULMONARY FUNCTION TEST (PFT) Routine 01/05/2025 11:16 AM CDT Chronic obstructive pulmonary disease, unspecified COPD type (HCC) DEXA AXIAL SKELETON BONE DENSITY 1 OR MORE SITES Schedule Routine, Read Routine (OP Routine) 12/31/2024 10:01 AM CDT Hypervitaminosis D Osteopenia of lumbar spine EGFR Routine 12/18/2024 10:30 AM CDT Encounter for Medicare annual wellness exam DIFFERENTIAL AUTO Routine 12/18/2024 10:30 AM CDT Encounter for Medicare annual wellness exam CBC WITH AUTO DIFFERENTIAL Routine 12/18/2024 10:30 AM CDT Encounter for Medicare annual wellness exam COMPREHENSIVE METABOLIC PANEL Routine 12/18/2024 10:30 AM CDT Encounter for Medicare annual wellness exam LIPID PANEL Routine 12/18/2024 10:30 AM CDT Pure hypercholesterolemia VITAMIN D 25 HYDROXY Routine 12/18/2024 10:30 AM CDT Poisoning by vitamin D, accidental or unintentional, initial encounter Hypervitaminosis D from Last 3 Months Results * Vitamin D 25 hydroxy (01/20/2025 8:43 AM CDT) Vitamin D 25-OH 78.0 30.0 - 80.0 ng/mL Blood 01/20/2025 8:43 AM CDT 01/20/2025 1:12 PM CDT us Ankur Morrison Jr., MD LAB BLOOD ORDERABLES Final Result [facility] [address] [facility] Department [place] [address] * eGFR (01/14/2025 9:04 AM CDT) eGFR 74 >=60 mL/min/1. 73 m2 Comment: Interpretive Data Reference Interval Normal >/= 90 mL/min/1.73m2 Mildly decreased* 60 - 89 mL/min/1.73m2 Mildly to moderately decreased 45 - 59 mL/min/1.73m2 Moderately to severely decreased 30 - 44 mL/min/1.73m2 Severely decreased 15 - 29 mL/min/1.73m2 Kidney Failure < 15 mL/min/1.73m2 *Relative to young adult level Estimated glomerular filtration rate is determined by the 2020 CKD-EPI equation recommended by the National Kidney Foundation (A Unifying Approach to GFR Estimation: Recommendations of the NKF-ASK Task Force on Reassessing the Inclusion of Race in Diagnosing Kidney Disease, JASN 2020). The CKD-EPI equation should not be used for patients with unstable renal function and has not been validated in children and those over 70. Current interpretive data was last reviewed 2021. Testing performed by: [address] [address] Blood 01/14/2025 9:04 AM CDT 01/14/2025 10:19 AM CDT Ankur Morrison Jr., MD LAB BLOOD ORDERABLES Final Result Performing Organization Address City/[facility] Co de Phone Number [place] [phone] [facility] [employer] [place] [address] * (ABNORMAL) Vitamin D 25 hydroxy (01/14/2025 9:04 AM CDT) Vitamin D 25-OH 102.0(H) 30.0 - 80.0 ng/mL Blood 01/14/2025 9:04 AM CDT 01/14/2025 12:39 PM CDT Ankur Morrison Jr., MD LAB BLOOD ORDERABLES Final Result Performing Organization Address City/[facility] Co de Phone Number [address] [place] [address] * Comprehensive metabolic panel (01/14/2025 9:04 AM CDT) Sodium 142 135 - 145 mmol/L Comment:Testing performed by : [address] [place]., [address] Potassium, pl 4.0 3.3 - 4.9 mmol/L [facility] Comment:Testing performed by : [address] [address] Chloride 103 97 - 110 mmol/L [facility] Comment:Testing performed by : [address], [place]., [address] CO2 24 22 - 32 mmol/L [facility] Comment:Testing performed by : [address] [address] Anion gap 15 2 - 15 mmol/L [facility] Comment:Testing performed by : [address] [address] BUN 15 6 - 25 mg/dL [facility] Comment:Testing performed by : [address], [place]., [address] Creatinine 0.80 0.60 - 1.10 mg/dL [facility] Comment:Testing performed by : [address] [address] Glucose 93 70 - 199 mg/dL [facility] Comment: Interpretive Data Fasting glucose >/= 126 mg/dl is diagnostic for diabetes. Fasting is defined as no caloric intake for at least 8 hours. Fasting glucose between 100 mg/dl to 125 mg/dl is diagnostic of prediabetes. In a patient with classic symptoms of hyperglycemia or hyperglycemic crisis, a random glucose >/= 200 mg/dl is diagnostic for diabetes. In the absence of unequivocal hyperglycemia, results should be confirmed by repeat testing. The classification and Diagnosis of Diabetes Diabetes Care 2021; 46: S19-S40. Current interpretive data was last revised 2022. Testing performed by: [address] [address] Calcium 10.2 8.5 - 10.3 mg/dL [facility] Comment:Testing performed by : [address] [address] Bilirubin, total 0.4 0.1 - 1.2 mg/dL [facility] Comment:Testing performed by : [address] [address] Protein, pl 6.9 6.5 - 8.5 g/dL [facility] Comment:Testing performed by : [facility], [address] [place] [address]., [address] Albumin 4.4 3.5 - 5.0 g/dL [facility] Comment:Testing performed by : [address] [address] Alk phos 75 40 - 130 Units/L [facility] Comment:Testing performed by : [address], [address] ALT 11 7 - 45 Units/L [facility] Comment:Testing performed by : [address] [address] AST 21 10 - 45 Units/L [facility] Comment:Testing performed by : [address] [address] Blood 01/14/2025 9:04 AM CDT 01/14/2025 10:19 AM CDT Ankur Morrison Jr., MD LAB BLOOD ORDERABLES Final Result [facility] [id number] [facility] Department of Laboratories [place], [place] [id number] * Pulmonary Function Test - (01/05/2025 11:16 AM CDT) Pathologist [facility] FVC POST 2.10 L 01/05/2025 11:11 AM CDT [facility] FEV1 POST 1.35 L 01/05/2025 11:11 AM CDT [facility] [id number] 64.53 % 01/05/2025 11:11 AM CDT [facility] ESV07-44% POST 0.70 L/s 01/05/2025 11:11 AM CDT [facility] PEF POST 4.60 L/s 01/05/2025 11:11 AM CDT [facility] DLCOc SB 9.20 ml/(min*mm Hg) 01/05/2025 11:11 AM CDT [facility] DLCO/VA PRE 3.03 ml/(min*mm Hg*L) 01/05/2025 11:11 AM CDT [facility] VA 3.04 L 01/05/2025 11:[address] [facility] TLC PRE 5.29 L 01/05/2025 11:[address] [facility] VC PRE 2.06 L 01/05/2025 11:[address] [facility] IC PRE 1.71 L 01/05/2025 11:[address] [facility] FRC PL PRE 3.58 L 01/05/2025 11:[address] [facility] ERV PRE 0.35 L 01/05/2025 11:[address] [facility] RV PRE 3.23 L 01/05/2025 11:11 AM T [facility] RAW PRE 6.40 cmH2O*s/L 01/05/2025 11:[address] [facility] VTG 4.06 L 01/05/2025 11:[address] [facility] FVC PRE 1.98 L 01/05/2025 11:[address] [facility] FEV1 PRE 1.18 L 01/05/2025 11:[address] [facility] [id number] 59.50 % 01/05/2025 11:[address] [facility] BXH95-21% PRE 0.49 L/s 01/05/2025 11:[address] [facility] PEF PRE 4.78 L/s 01/05/2025 11:[address] [facility] Anatomical Region Laterality Modality PFT 01/05/2025 9:57 AM CDT Impressions 01/10/2025 11:10 AM CDT 1. Pre bronchodilator spirometry demonstrates mild obstruction. Post-bronchodilator spirometry normalizes. 2. There is significant bronchodilator response. 3. Lung volumes demonstrate mild gas trapping 4. Moderate diffusion impairment. 5. 6 minute walk test performed. Patient ambulated 808. Patient maintained oxygen saturation 91-94%. Patient did not require supplemental oxygen with ambulation. Clinical correlation is advised Electronically signed by Ashu Nelson DO Pulmonary & Critical Care Narrative 01/10/2025 11:10 AM CDT PULMONARY FUNCTION TESTS Rica Licona 79 y.o. 01/10/2025 INTERPRETATION Please see technologist's comments mentioned in attached results report. SPIROMETRY: Pre bronchodilator FEV1 is 67 % predicted, FVC is 86 % predicted, FEV1/FVC is 60 Bronchodilator response: There is significant bronchodilator response. Inspection of the patient's flow-volume loops shows: Expiratory airflow obstruction. LUNG VOLUMES: Lung volumes by body plethysmography: TLC is 116 % predicted, RV is 151 % predicted DLCO: Unadjusted for hemoglobin and carboxyhemoglobin DLCO is 50 % predicted us Mckenzie Hernandez MD PFT ORDERABLES Final Result * Dexa Axial Skeleton Bone Density 1 or 2 Site (12/31/2024 10:01 AM CDT) Anatomical Region Laterality Modality Body N/A Mammography 12/31/2024 6:38 PM CDT Narrative 12/31/2024 6:40 PM CDT EXAM DESCRIPTION: DEXA AXIAL SKELETON BONE DENSITY 1 OR MORE SITES REASON FOR STUDY: 79 y/o year old F with given history of: post-menopausal osteoporosis prevention Manufacturing Operator/Model: Microarrays A (S/N [id number]) Facility LSC value of 0.022 for the AP spine, 0.027 for the femur, and 0.023 for the forearm. CLINICAL INFORMATION: Current height: 62 inches Maximum height: 62 inches Weight: 120 pounds Risk factors: Postmenopausal, adult fracture, asthma or emphysema COMPARISON: None available FINDINGS: AP LUMBAR SPINE L1-L4: Total BMD is 1.160 g/cm2 T-score is 1.0 LEFT forearm: 33% radius BMD is 0.465 g/cm2 T-score is -3.8 FRAX: FRAX not reported due to T-scores of hip, femoral neck and/or spine being at or below -2.5 (Osteoporosis). IMPRESSION: 1. Osteoporosis. REFERENCE: Bone mineral density: T-Score: Normal (T-score above or = -1.0) Low bone mass (T-score between -1.0 and -2.5) replaces the previously used term osteopenia Osteoporosis (T-score = or below -2.5) Z-Score: Within the expected range for age (Z-score above -2.0) Below the expected range for age (Z-score is -2.0 or below) Please see below follow up recommendations. Medical evaluation for secondary causes of low bone mineral density may be appropriate. FRAX is a World Health Organization validated fracture risk assessment tool that calculates a person's 10 year probability of a major osteoporosis related fracture and hip fracture. According to the National Osteoporosis Foundation guidelines, postmenopausal women and men age 50 or older with low bone mass and a 10 year probability of a major osteoporosis related fracture = or greater than 20% or a 10 year probability of a hip fracture = or greater than 3% should be considered for pharmacological treatment for the prevention of osteoporosis. For further information, including treatment recommendations, please refer to the 2019 ISCD Official Positions (http://www.iscd.org) and the NOF's Clinician's Guide to Prevention and Treatment of Osteoporosis (http://www.nof.org/professionals/clinical-guidelines) THIS IS AN ELECTRONICALLY VERIFIED FINAL REPORT 12/31/2024 6:40 PM - Electronically signed by Ankur Guzman M.D. 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 CLINICAL INFORMATION: Current height: 62 inches Maximum height: 62 inches Weight: 120 pounds Risk factors: Postmenopausal, adult fracture, asthma or emphysema COMPARISON: None available FINDINGS: AP LUMBAR SPINE L1-L4: Total BMD is 1.160 g/cm2 T-score is 1.0 LEFT forearm: 33% radius BMD is 0.465 g/cm2 T-score is -3.8 FRAX: FRAX not reported due to T-scores of hip, femoral neck and/or spine beingat or below -2.5 (Osteoporosis). IMPRESSION: 1. Osteoporosis. REFERENCE: Bone mineral density: T-Score: Normal (T-score above or = -1.0) Low bone mass (T-score between -1.0 and -2.5) replaces thepreviously used term osteopenia Osteoporosis (T-score = or below -2.5) Z-Score: Within the expected range for age (Z-score above -2.0) Below the expected range for age (Z-score is -2.0 or below) Please see below follow up recommendations. Medical evaluation forsecondary causes of low bone mineral density may be appropriate. FRAX is a World Health Organization validated fracture risk assessmenttool that calculates a person's 10 year probability of a major osteoporosisrelated fracture and hip fracture. According to the National OsteoporosisFoundation guidelines, postmenopausal women and men age 50 or older with low bonemass and a 10 year probability of a major osteoporosis related fracture = or greater than 20% or a 10 year probability of a hip fracture = or greaterthan 3% should be considered for pharmacological treatment for the preventionof osteoporosis. For further information, including treatment recommendations, please referto the 2019 ISCD Official Positions (http://www.iscd.org) and the NOF's Clinician's Guide to Prevention and Treatment of Osteoporosis (http://www.nof.org/professionals/clinical-guidelines) THIS IS AN ELECTRONICALLY VERIFIED FINAL REPORT 12/31/2024 6:40 PM - Electronically signed by Ankur Guzman M.D. MF: YOLANDA Report ID: [id number] Reading Location: [place] [address] Ankur Morrison Jr., MD IM DXA PROCEDURES Fi nal Result * eGFR (12/18/2024 10:30 AM CDT) eGFR 71 >=60 mL/min/1. 73 m2 Comment: Interpretive Data Reference Interval Normal >/= 90 mL/min/1.73m2 Mildly decreased* 60 - 89 mL/min/1.73m2 Mildly to moderately decreased 45 - 59 mL/min/1.73m2 Moderately to severely decreased 30 - 44 mL/min/1.73m2 Severely decreased 15 - 29 mL/min/1.73m2 Kidney Failure < 15 mL/min/1.73m2 *Relative to young adult level Estimated glomerular filtration rate is determined by the 2020 CKD-EPI equation recommended by the National Kidney Foundation (A Unifying Approach to GFR Estimation: Recommendations of the NKF-ASK Task Force on Reassessing the Inclusion of Race in Diagnosing Kidney Disease, JASN 2020). The CKD-EPI equation should not be used for patients with unstable renal function and has not been validated in children and those over 70. Current interpretive data was last reviewed 2021. Testing performed by: [address] [address] Blood 12/18/2024 10:3 0 AM CDT 12/18/2024 11:34 AM CDT Ankur Morrison Jr., MD LAB BLOOD ORDERABLES Final Result [place] [address] [facility] Department [place] [address] * Differential, auto (12/18/2024 10:30 AM CDT) Neutrophil abs 4.00 1.50 - 6.50 K/cumm Comment:Testing performed by : [address] [address] Imm gran abs 0.01 0.00 - 0.10 K/cumm [facility] Comment:Testing performed by : [address] [address] Lymphocyte abs 1.68 0.80 - 3.30 K/cumm [facility] Comment:Testing performed by : [address] [address] Monocyte abs 0.33 0.20 - 0.80 K/cumm [facility] Comment:Testing performed by : [address] [address] Eosinophil abs 0.09 0.00 - 0.50 K/cumm [facility] Comment:Testing performed by : [address] [address] Basophil abs 0.03 0.00 - 0.10 K/cumm [facility] Comment:Testing performed by : [address] [address] Neutrophil pct 65.0 % [facility] Comment: Interpretive Data Percent cell count reference ranges are not reported, since discordance with absolute values may lead to misinterpretation of CBC data. Current Interpretive Data was last revised on 2017. Testing performed by: [address] [address] Imm gran pct 0.2 % [facility] Comment: Interpretive Data Percent cell count reference ranges are not reported, since discordance with absolute values may lead to misinterpretation of CBC data. Current Interpretive Data was last revised on 2017. Testing performed by: [address] [address] Lymphocyte pct 27.4 % [facility] Comment: Interpretive Data Percent cell count reference ranges are not reported, since discordance with absolute values may lead to misinterpretation of CBC data. Current Interpretive Data was last revised on 2017. Testing performed by: [address] [address] Monocyte pct 5.4 % [facility] Comment: Interpretive Data Percent cell count reference ranges are not reported, since discordance with absolute values may lead to misinterpretation of CBC data. Current Interpretive Data was last revised on 2017. Testing performed by: [address] [address] Eosinophil pct 1.5 % [facility] Comment: Interpretive Data Percent cell count reference ranges are not reported, since discordance with absolute values may lead to misinterpretation of CBC data. Current Interpretive Data was last revised on 2017. Testing performed by: [address] [address] Basophil pct 0.5 % [facility] Comment: Interpretive Data Percent cell count reference ranges are not reported, since discordance with absolute values may lead to misinterpretation of CBC data. Current Interpretive Data was last revised on 2017. Testing performed by: [address] [address] Blood 12/18/2024 10:3 0 AM CDT 12/18/2024 11:37 AM CDT us Ankur Morrison Jr., MD LAB BLOOD ORDERABLES Final Result [place] [address] [facility] Department [place] [address] * (ABNORMAL) CBC with auto differential (12/18/2024 10:30 AM CDT) [facility] Signature WBC 6.14 3.80 - 9.90 K/cumm Comment:Testing performed by : [address] [address] Hgb 15.8(H) 11.9 - 15.5 g/dL [facility] Comment:Testing performed by : [address] [address] Hct 46.8(H) 35.6 - 45.5 % [facility]US Comment:Testing performed by : [address] [address] Plt 244 150 - 400 K/cumm [facility]ARCUS Comment:Testing performed by : [address] [address] MPV 9.9 9.1 - 12.3 fL [facility]US Comment:Testing performed by : [address] [address] RBC 5.38(H) 3.90 - 5.20 M/cumm DEMARCUS Comment:Testing performed by : [address] [address] MCV 87.0 81.3 - 96.4 fL [facility] Comment:Testing performed by : [address] [address] MCH 29.4 27.1 - 33.3 pg [facility] [place] Comment:Testing performed by : [address] [address] MCHC 33.8 32.3 - 35.7 g/dL [facility]US Comment:Testing performed by : [address], [address] RDW CV 13.9 11.1 - 14.9 % [facility] [place] Comment:Testing performed by : [address] [address] RDW SD 44.0 35.7 - 48.1 fL [facility] [place] Comment:Testing performed by : [address] [address] NRBC abs 0.00 0.00 - 0.01 K/cumm [facility] [place] Comment:Testing performed by : [address] [address] Blood 12/18/2024 10:3 0 AM CDT 12/18/2024 11:37 AM CDT Ankur Morrison Jr., MD LAB BLOOD ORDERABLES Final Result Performing Organization Address [facility] de Phone Number [address] [employer] [place] [address] * (ABNORMAL) Vitamin D 25 hydroxy (12/18/2024 10:30 AM CDT) Vitamin D 25-OH 96.0(H) 30.0 - 80.0 ng/mL Blood 12/18/2024 10:3 0 AM CDT 12/18/2024 12:23 PM CDT Ankur Morrison Jr., MD LAB BLOOD ORDERABLES Final Result Performing Organization Address [facility] Co de Phone Number [address] [address] * (ABNORMAL) Lipid panel (12/18/2024 10:30 AM CDT) Cholesterol 221(H) 30 - 199 mg/dL Comment: Interpretive Data Ages < or = 19 years Acceptable: <170 mg/dL Borderline high: 170-199 mg/dL High: >or= 200 mg/dL Ages > or = 20 years Desirable: <200 mg/dL Borderline high: 200-239 mg/dL High: >or= 240 mg/dL Literature References: 1. Expert Panel on Integrated Guidelines for Cardiovascular Health and Risk Reduction in Children and Adolescents. Pediatrics 2011;128:S213 2. NCEP Expert Panel. Circulation 2004;110:227 Current Interpretive Data was last revised on 2018. Testing performed by: [address] [address] Triglycerides 73 <=149 mg/dL [facility]US Comment: Interpretive Data Ages < or = 9 years Acceptable: <75 mg/dL Borderline high: 75-99 mg/dL High: >or= 100 mg/dL Ages 10 to 20 years Acceptable: <90 mg/dL Borderline high: 90-129 mg/dL High: >or= 130 mg/dL Ages > or = 20 years Desirable: <150 mg/dL Borderline high: 150-199 mg/dL High: 200-499 mg/dL Very high: >or= 499 mg/dL Literature References: 1. Expert Panel on Integrated Guidelines for Cardiovascular Health and Risk Reduction in Children and Adolescents. Pediatrics 2011;128:S213 2. NCEP Expert Panel. Circulation 2004;110:227 Current Interpretive Data was last revised on 2018. Testing performed by: [address] [address] HDL 63 >=40 mg/dL [facility] Comment: Interpretive Data Ages < or = 19 years Acceptable: >45 mg/dL Borderline low: 40-45 mg/dL Low: <40 mg/dL Ages > or = 20 years Desirable: >or= 60 mg/dL Low: <40 mg/dL Literature References: 1. Expert Panel on Integrated Guidelines for Cardiovascular Health and Risk Reduction in Children and Adolescents. Pediatrics 2011;128:S213 2. NCEP Expert Panel. Circulation 2004;110:227 Current Interpretive Data was last revised on 2018. Testing performed by: [address] [address] LDL, calculated 145(H) <=129 mg/dL [facility]US Comment: Interpretive Data Ages < or = 19 years Acceptable: <110 mg/dL Borderline high: 110-129 mg/dL High: >or= 130 mg/dL Ages > or = 20 years Optimal: <100 mg/dL Near optimal: 100-129 mg/dL Borderline high: 130-159 mg/dL High: >160 mg/dL Calculated using the Amos LDL-C estimating equation. This equation was implemented on 2024. Prior to this date LDL-C was estimated using the Friedewald equation. Literature References: 1. Expert Panel on Integrated Guidelines for Cardiovascular Health and Risk Reduction in Children and Adolescents. Pediatrics 2011;128:S213 2. NCEP Expert Panel. Circulation 2004;110:227 3. Dandre M et al. YEYO Cardiol. 2019September 18;5(5):540-548. doi: 10.1001/[email or web address].2020.0013 Current Interpretive Data was last revised on 2024. Testing performed by: [address] [address] Non-HDL Cholesterol 158 mg/dL [facility] [place] Comment: Interpretive Data Ages < or = 19 years Acceptable: <120 mg/dL Borderline high: 120-144 mg/dL High: >145 mg/dL Ages > or = 20 years When triglycerides are >200 mg/dL, Non-HDL cholesterol is a secondary target of therapy with treatment goals that are 30 mg/dL greater than the LDL cholesterol target. Literature References: 1. Expert Panel on Integrated Guidelines for Cardiovascular Health and Risk Reduction in Children and Adolescents. Pediatrics 2011;128:S213 2. NCEP Expert Panel. Circulation 2004;110:227 Current Interpretive Data was last revised on 2018. Testing performed by: [address] [address] Chol/HDL ratio 4 [facility] Comment:Testing performed by : [address] [address] Blood 12/18/2024 10:3 0 AM CDT 12/18/2024 11:34 AM CDT us Ankur Morrison Jr., MD LAB BLOOD ORDERABLES Final Result [facility] SANDY [address] [facility] Department [place] [address] * Comprehensive metabolic panel (12/18/2024 10:30 AM CDT) [facility] Sodium 138 135 - 145 mmol/L Comment:Testing performed by : [address] [address] Potassium, pl 4.5 3.3 - 4.9 mmol/L [facility] Comment:Testing performed by : [address] [address] Chloride 101 97 - 110 mmol/L [facility] Comment:Testing performed by : [address], [place]., [address] CO2 25 22 - 32 mmol/L [facility] Comment:Testing performed by : [address], [place]., [address] Anion gap 12 2 - 15 mmol/L [facility] Comment:Testing performed by : [address] [address] BUN 12 6 - 25 mg/dL [facility] Comment:Testing performed by : [address], [place]., [address] Creatinine 0.83 0.60 - 1.10 mg/dL [facility] Comment:Testing performed by : [address] [address] Glucose 97 70 - 199 mg/dL [facility] Comment: Interpretive Data Fasting glucose >/= 126 mg/dl is diagnostic for diabetes. Fasting is defined as no caloric intake for at least 8 hours. Fasting glucose between 100 mg/dl to 125 mg/dl is diagnostic of prediabetes. In a patient with classic symptoms of hyperglycemia or hyperglycemic crisis, a random glucose >/= 200 mg/dl is diagnostic for diabetes. In the absence of unequivocal hyperglycemia, results should be confirmed by repeat testing. The classification and Diagnosis of Diabetes Diabetes Care 202; 46: S19-S40. Current interpretive data was last revised 2022. Testing performed by: [address] [address] Calcium 10.2 8.5 - 10.3 mg/dL [facility] Comment:Testing performed by : [address] [address] Bilirubin, total 0.5 0.1 - 1.2 mg/dL [facility] Comment:Testing performed by : [address] [address] Protein, pl 7.4 6.5 - 8.5 g/dL [facility] Comment:Testing performed by : [address] [address] Albumin 4.5 3.5 - 5.0 g/dL [facility] Comment:Testing performed by : [address] [address] Alk phos 77 40 - 130 Units/L [facility] Comment:Testing performed by : [address] [address] ALT 12 7 - 45 Units/L [facility] Comment:Testing performed by : [address] [address] AST 24 10 - 45 Units/L [facility] Comment:Testing performed by : [address] [address] Blood 12/18/2024 10:3 0 AM CDT 12/18/2024 11:34 AM CDT Ankur Morrison Jr., MD LAB BLOOD ORDERABLES Final Result [facility] Department [place] [address] from Last 3 Months Insurance MEDICARE [facility] Address: [address] [address] [employer] MEDICARE [facility] MEDICARE [employer] SENIOR SUPPLEMENT Advance Directives For more information, please contact: [phone] * Full Code (Latest Code Status on File) Date Activated Date Inactivated Comments 02/22/2022 9:19 AM 02/22/2022 3:23 PM * Full Code Date Activated Date Inactivated Comments 10/11/2021 8:23 AM 10/11/2021 2:36 PM * Full Code Date Activated Date Inactivated Comments 01/10/2021 10:29 AM 01/11/2021 7:00 PM * Full Code Date Activated Date Inactivated Comments 07/29/2019 8:04 AM 07/29/2019 3:02 PM Care Teams Powerplant Operator Relationship Specialty Start Date End Date Ankur Morrison Jr., MD [address] [place] [id number] PCP - General Internal Medicine 06/05/22
== END 2025-02-03 09:34 | disposition home or self-care (01) ==
PROVIDERS: Visit Provider Obstetrics & Gynecology Gynecology
DX: Z12.31 Encounter for screening mammogram for malignant neoplasm of breast (principal); Z98.82 Breast implant status
CPT/HCPCS: 77063; 77067